=== PATIENT | male | born 1955 | race Caucasian/White ===

== ENCOUNTER 2017-01-04 10:47 | Emergency (ER) | payer MEDICARE ==
[2017-01-04] MEDS ORDERED: Sodium Chloride 0.9% 1000 ML 1,000 ML ONE ×3 (10:54→13:33)
[2017-01-04] MEDS ORDERED: Pepcid 20 MG VIAL IV ONE ×2 (10:54→10:55)
[2017-01-04] MEDS ORDERED: Zofran 4 MG/2 ML VIAL ONE (10:54)
[2017-01-04] MEDS ORDERED: Zofran 4 MG/2 ML VIAL IV ONE (10:55)
[2017-01-04] MEDS ORDERED: Sodium Chloride 0.9% 1000 ML 1,000 ML IV SCH (11:00)
[2017-01-04] MEDS ORDERED: SUBLIMAZE 100 MCG/2 ML IV ONE ×2 (11:02→13:50)
--- NOTE | 2017-01-04 11:02 | ERPHSYRPT ---
- History of Present Illness Time Seen by Provider: 01/04/17 10:55 Source: patient, family () Patient Subjective Stated Complaint: pt here for pain to abd upper, with nausea and vomiting,since about 0630 today, no fever, cough, no loose stools Triage Nursing Assessment: pt alert, resp easy,vomited x 2 in er, abd soft,pt pale,clammy. no edema noted Physician History: CC: chest/abd pain Hx: 61 y/o patient of Dr Tyler with hx of chronic back problems. He has no hx of prior abd surgeries nor heart problems. He awoke this AM with pain in the lower chest and epigastric area. He has vomiting. No back pain. Pain is sharp and severe. Sister brought him to ER. He took ASA last night and 325mg ASA this AM at home [employer]. He takes naproxen and xanax as only medications. Timing/Duration: today Severity: severe Associated Symptoms: nausea, vomiting Allergies/Adverse Reactions: No Known Drug Allergies Allergy (Unverified 01/04/17 11:00) Home Medications: Alprazolam 1 mg [Xanax 1 mg] 1 mg TID 01/04/17 [History] Aspirin EC 325 mg [Ecotrin 325 MG] 325 mg DAILY 01/04/17 [History] Naproxen 500 mg [Naprosyn 500 MG] 500 mg BID 01/04/17 [History] Hx Influenza Vaccination/Date Given: Yes Hx Pneumococcal Vaccination/Date Given: Yes Immunizations Up to Date: Yes - Review of Systems Constitutional: No Fever, No Chills Eyes: No Symptoms Ears, Nose, & Throat: No Symptoms Respiratory: No Cough, No Dyspnea Cardiac: Chest Pain Abdominal/Gastrointestinal: Abdominal Pain, Nausea, Vomiting, No Diarrhea Genitourinary Symptoms: No Dysuria Musculoskeletal: Back Pain (chronic) Skin: No Rash Neurological: No Focal Weakness, No Headache, No Parasthesia All Other Systems: Reviewed and Negative - Past Medical History Pertinent Past Medical History: Yes (chronic back pain) - Social History Smoking Status: Current every day smoker Exposure to second hand smoke: Yes Patient Lives Alone: No - Nursing Vital Signs Nursing Vital Signs: Initial Vital Signs Temperature 97.0 F 01/04/17 10:49 Pulse Rate 51 L 01/04/17 10:49 Respiratory Rate 20 01/04/17 10:49 Blood Pressure 106/59 01/04/17 10:49 O2 Sat by Pulse Oximetry 100 01/04/17 10:49 Pain Scale Pain Intensity 4 - Physical Exam General Appearance: alert, other (pale, uncomfortable appearing, vomiting) Eye Exam: PERRL/EOMI Ears, Nose, Throat Exam: normal ENT inspection, moist mucous membranes Neck Exam: normal inspection, non-tender, supple Respiratory Exam: normal breath sounds Cardiovascular Exam: regular rate/rhythm, bradycardia, No murmur, No friction rub, No gallop Gastrointestinal/Abdomen Exam: soft, No tenderness (no point tenderness, no mass ), No mass, No guarding Male Genitalia Exam: normal genitalia, No hernia Extremity Exam: normal inspection, normal range of motion, No calf tenderness, No pedal edema Neurologic Exam: alert, oriented x 3, cooperative, sensation nml, No motor deficits Skin Exam: warm, dry, pale SpO2 Interpretation: normal SpO2: 100 Oxygen Delivery: Room Air - Course Nursing assessment & vital signs reviewed: Yes EKG Interpreted by Me: RATE (56), Sinus Lenard, NORMAL AXIS, NORMAL INTERVALS ( QTc 398), NORMAL QRS, Non-specific ST Changes (hint of 1mm or less ST elevation inferior leads without reciprocal chyange) - Radiology Exams cxr X-ray Interpretation: Teleradiologist Report, Negative - CT Exams abd/pelvis CT Interpretation: Tele-radiologist Report (pancreatitis) Ordered Tests: Active Orders 24 hr Category Date Time Status Technician Chemical Cleaning STAT Care 01/04/17 10:56 Active EKG-ER Only STAT Care 01/04/17 10:55 Active EKG-ER Only STAT Care 01/04/17 10:56 Active IV Insertion STAT Care 01/04/17 10:55 Active IV Insertion-2nd Peripheral STAT Care 01/04/17 10:56 Active NPO (ED) STAT Care 01/04/17 10:55 Active Pulse Oximetry (ED) STAT Care 01/04/17 10:56 Active ABDOMEN AND PELVIS W/0 CONTRAS [CT] Stat Exams 01/04/17 11:47 Completed CHEST 1 VIEW (PORTABLE) Stat Exams 01/04/17 10:55 Completed CBC W DIFF Stat Lab 01/04/17 11:05 Completed CMP Stat Lab 01/04/17 11:05 Completed CULTURE,URINE Stat Lab 01/04/17 11:40 Received LIPASE Stat Lab 01/04/17 11:05 Completed Lactic Acid Stat Lab 01/04/17 10:55 Completed PROTIME WITH INR Stat Lab 01/04/17 11:05 Completed PTT Stat Lab 01/04/17 11:05 Completed TROPONIN Q3H Lab 01/04/17 10:55 Completed TROPONIN Q3H Lab 01/04/17 14:00 Ordered TROPONIN Q3H Lab 01/04/17 17:00 Ordered TROPONIN Q3H Lab 01/04/17 20:00 Ordered TROPONIN Q3H Lab 01/04/17 23:00 Ordered UA W/ MICROSCOPIC Stat Lab 01/04/17 11:40 Completed Medication Summary Generic Name Dose Route Start Last Admin Trade Name Freq PRN Reason Stop Dose Admin Sodium Chloride 1,000 mls @ 100 mls/hr 01/04/17 11:00 01/04/17 11:03 Sodium Chloride 0.9% 1000 Ml IV 02/03/17 10:59 100 mls/hr .Q10H AZAM Administration Sodium Chloride 1,000 mls @ 999 mls/hr 01/04/17 13:32 Sodium Chloride 0.9% 1000 Ml IV 01/04/17 14:32 .Q1H1M STA Discontinued Medications Generic Name Dose Route Start Last Admin Trade Name Freq PRN Reason Stop Dose Admin Famotidine 20 mg 01/04/17 10:55 01/04/17 11:03 Pepcid 20 Mg Vial IV 01/04/17 10:56 20 mg STAT ONE Administration Famotidine Confirm 01/04/17 10:54 Pepcid 20 Mg Vial Administered 01/04/17 10:55 Dose 20 mg IV .STK-MED ONE Fentanyl Citrate 50 mcg 01/04/17 11:02 01/04/17 11:07 Sublimaze 100 Mcg/2 Ml IV 01/04/17 11:03 50 mcg STAT ONE Administration Fentanyl Citrate Confirm 01/04/17 11:05 Sublimaze 100 Mcg/2 Ml Administered 01/04/17 11:06 Dose 100 mcg .ROUTE .STK-MED ONE Sodium Chloride 1,000 mls @ 999 mls/hr 01/04/17 12:10 01/04/17 12:31 Sodium Chloride 0.9% 1000 Ml IV 01/04/17 13:10 999 mls/hr .Q1H1M STA Administration Ondansetron HCl 4 mg 01/04/17 10:55 01/04/17 11:03 Zofran 4 Mg/2 Ml Vial IV 01/04/17 10:56 4 mg STAT ONE Administration Ondansetron HCl Confirm 01/04/17 10:54 Zofran 4 Mg/2 Ml Vial Administered 01/04/17 10:55 Dose 4 mg .ROUTE .STK-MED ONE Lab/Rad Data: Laboratory Result Diagrams 01/04/17 11:05 01/04/17 11:05 Laboratory Results 01/04/17 01/04/17 01/04/17 Range/Units 11:40 11:05 11:05 WBC (4.0-10.5) K/mm3 RBC (4.1-5.6) M/mm3 Hgb (12.5-18.0) gm/dl Hct (42-50) % MCV (78-100) fl MCH (26-32) pg MCHC (32-36) g/dl RDW (11.5-14.0) % Plt Count (150-450) K/mm3 MPV (6-9.5) fl Gran % (36.0-66.0) % Lymphocytes % (24.0-44.0) % Monocytes % (0.0-12.0) % Eosinophils % (0.00-5.0) % Basophils % (0.0-0.4) % Basophils # (0-0.4) INR 1.13 (0.8-3.0) APTT 26.9 (24.1-36.1) SECONDS Sodium 137 (136-145) mEq/L Potassium 4.0 (3.5-5.1) mEq/L Chloride 103 (98-107) mEq/L Carbon Dioxide 20.5 L (21-32) mEq/L Anion Gap 17.3 H (5-15) MEQ/L BUN 25 H (9-20) mg/dL Creatinine 0.73 (0.55-1.30) mg/dl Estimated GFR > 60 ML/MIN Glucose 117 H (70-110) MG/DL Lactic Acid (0.4-2.0) Calcium 9.0 (8.5-10.1) mg/dL Total Bilirubin 0.40 (0.2-1.0) mg/dL AST 16 (15-37) U/L ALT 15 (12-78) U/L Alkaline Phosphatase 51 (46-116) U/L Troponin I (0.000-0.056) ng/ml Serum Total Protein 6.6 (6.4-8.2) gm/dL Albumin 3.8 (3.4-5.0) g/dL Lipase 06875 H (73-393) U/L Ur Collection Type VOID Urine Color DARK YELLOW (YELLOW) Urine Appearance HAZY (CLEAR) Urine pH 5.0 (5-6) Ur Specific [place] 1.030 (1.005-1.025) Urine Protein TRACE (Negative) Urine Ketones MODERATE (NEGATIVE) Urine Blood 5-10 (0-5) Avelino/ul Urine Nitrite NEGATIVE (NEGATIVE) Urine Bilirubin SMALL (NEGATIVE) Urine Urobilinogen 4 (0-1) mg/dL Ur Leukocyte Esterase NEGATIVE (NEGATIVE) Urine Microscopic RBC 2-5 (0-2) /HPF Urine Microscopic WBC 0-2 (0-5) /HPF Ur Epithelial Cells RARE (FEW) /HPF Urine Bacteria RARE (NEGATIVE) /HPF Hyaline Casts 2-5 (0-2) /LPF Urine Mucus MANY (NEGATIVE) /HPF Urine Culture Reflexed YES (NO) Urine Glucose NEGATIVE (NEGATIVE) mg/dL Specimen Received 01/04/17 1047 01/04/17 01/04/17 01/04/17 Range/Units 11:05 10:55 10:55 WBC 9.9 (4.0-10.5) K/mm3 RBC 4.40 (4.1-5.6) M/mm3 Hgb 13.7 (12.5-18.0) gm/dl Hct 40.6 L (42-50) % MCV 92.3 (78-100) fl MCH 31.1 (26-32) pg MCHC 33.7 (32-36) g/dl RDW 13.2 (11.5-14.0) % Plt Count 241 (150-450) K/mm3 MPV 9.3 (6-9.5) fl Gran % 86.2 H (36.0-66.0) % Lymphocytes % 9.4 L (24.0-44.0) % Monocytes % 4.1 (0.0-12.0) % Eosinophils % 0.2 (0.00-5.0) % Basophils % 0.1 (0.0-0.4) % Basophils # 0.01 (0-0.4) INR (0.8-3.0) APTT (24.1-36.1) SECONDS Sodium (136-145) mEq/L Potassium (3.5-5.1) mEq/L Chloride (98-107) mEq/L Carbon Dioxide (21-32) mEq/L Anion Gap (5-15) MEQ/L BUN (9-20) mg/dL Creatinine (0.55-1.30) mg/dl Estimated GFR ML/MIN Glucose (70-110) MG/DL Lactic Acid 1.3 (0.4-2.0) Calcium (8.5-10.1) mg/dL Total Bilirubin (0.2-1.0) mg/dL AST (15-37) U/L ALT (12-78) U/L Alkaline Phosphatase (46-116) U/L Troponin I < 0.017 (0.000-0.056) ng/ml Serum Total Protein (6.4-8.2) gm/dL Albumin (3.4-5.0) g/dL Lipase (73-393) U/L Ur Collection Type Urine Color (YELLOW) Urine Appearance (CLEAR) Urine pH (5-6) Ur Specific [place] (1.005-1.025) Urine Protein (Negative) Urine Ketones (NEGATIVE) Urine Blood (0-5) Avelino/ul Urine Nitrite (NEGATIVE) Urine Bilirubin (NEGATIVE) Urine Urobilinogen (0-1) mg/dL Ur Leukocyte Esterase (NEGATIVE) Urine Microscopic RBC (0-2) /HPF Urine Microscopic WBC (0-5) /HPF Ur Epithelial Cells (FEW) /HPF Urine Bacteria (NEGATIVE) /HPF Hyaline Casts (0-2) /LPF Urine Mucus (NEGATIVE) /HPF Urine Culture Reflexed (NO) Urine Glucose (NEGATIVE) mg/dL Specimen Received - Progress Progress Note: 01/04/17 11:33 No abdominal tenderness. He still has some pain. Meds given. REpeat EKG similar. Spoke to Dr Jannie Albert and will send EKG for his review. EKG nonspecific but suspect inferior ischemia due to symptoms. 01/04/17 12:15 BP was 70/ IVF bolus in progress. He has some bradycardia as well. Dr Jannie Albert reviewed EKG X 2 and advised not STEMI but could t rail turner to be ACS. He arranged ICU bed at [facility]. In meantime the troponin is inially negative and lipase is elevated. Will notify Dr Albert after CT result. 01/04/17 13:32 BP improving but still low. Spoke to Dr Davenport hospitalist at [facility] who accepts transfer to [facility] ICU. Counseled pt/family regarding: lab results, diagnosis, need for follow-up, rad results - Departure Time of Disposition: 13:33 Departure Disposition: Transfer ([facility]) Clinical Impression: Acute pancreatitis, rule out ACS, Hypotension Condition: Serious Critical Care Time: Yes Critical Care Time(excluding separately billable procedures): 30-74 minutes Referrals: KAREN TYLER [Primary Care Provider] -
[2017-01-04] MEDS ORDERED: SUBLIMAZE 100 MCG/2 ML ONE ×2 (11:05→13:52)
[2017-01-04 11:18] LABS: BASOPHIL % 0.1 % (0.0-0.4); Eosinophil % 0.2 % (0.00-5.0); Granulocytes % 86.2 % (36.0-66.0); Lymphocytes % 9.4 % (24.0-44.0); Mean Cell Volume 92.3 fl (78-100); Mean Corpuscular Hemoglobin 31.1 pg (26-32); Mean Platelet Volume 9.3 fl (6-9.5); Monocytes % 4.1 % (0.0-12.0); Platelet Count 241 K/mm3 (150-450); Red Cell Distribution Width 13.2 % (11.5-14.0); White Blood Count 9.9 K/mm3 (4.0-10.5)
--- NOTE | 2017-01-04 11:30 | XRAY ---
Indication: Chest pain. Comparison: None Portable apical lordotic chest demonstrates normal heart and lungs. Bony thorax intact.
[2017-01-04 11:33] LABS: INR 1.13 (0.8-3.0); PROTIME 12.6 SECONDS (8.83-12.87)
[2017-01-04 11:36] LABS: PTT 26.9 SECONDS (24.1-36.1)
[2017-01-04 11:42] LABS: ALBUMIN 3.8 g/dL (3.4-5.0); ALKALINE PHOSPHATASE 51 U/L (46-116); ANION GAP 17.3 MEQ/L (5-15); BLOOD UREA NITROGEN 25 mg/dL (9-20); CHLORIDE 103 mEq/L (98-107); Carbon Dioxide 20.5 mEq/L (21-32); Glucose 117 MG/DL (70-110); SGOT/AST 16 U/L (15-37); SGPT/ALT 15 U/L (12-78); SODIUM 137 mEq/L (136-145); Total Protein 6.6 gm/dL (6.4-8.2)
[2017-01-04 11:52] LABS: Collection Type VOID
[2017-01-04 11:53] LABS: Bilirubin SMALL (NEGATIVE); COMPLETE URINE MICROSCOPIC? YES; Glucose NEGATIVE (NEGATIVE); Leukocyte Esterase NEGATIVE (NEGATIVE)
[2017-01-04 12:02] LABS: LIPASE 14170 U/L (73-393)
[2017-01-04 12:07] LABS: ADD URINE CULTURE? YES (NO); Bacteria RARE /HPF (NEGATIVE); Epithelial Cells RARE /HPF (FEW); Mucus MANY /HPF (NEGATIVE); WBC 0-2 /HPF (0-5)
[2017-01-04] MEDS ORDERED: Sodium Chloride 0.9% 1000 ML 1,000 ML IV STA ×2 (12:10→13:32)
--- NOTE | 2017-01-04 12:22 | XRAY ---
Indication: Lower chest/upper abdominal pain. Comparison: None Lung bases essentially clear. Heart is not enlarged. There is mild peripancreatic stranding with tiny free fluid near the tail the pancreas favoring pancreatitis. A few pancreatic punctate calcifications favor chronic pancreatitis. No walled off fluid collection or free air. Noncontrasted stomach and bowel loops appear nonobstructed. Mild diffuse scattered colonic fecal debris. Normal appendix. A few calcified splenic granulomas. Remaining liver, gallbladder, spleen, adrenal glands, kidneys, ureters, and bladder appear unremarkable for noncontrast exam. Mild aortoiliac calcifications without AAA. Osseous structures intact with moderate degenerative changes throughout the spine and moderate levorotoscoliosis centered at L1-L2 level. Impression: 1. CT findings favoring acute pancreatitis on a background of chronic pancreatitis. 2. Mild fecal stasis without obstruction. Comment: Case was reviewed with the ordering clinician, Dr. Sánchez. CT DI 18.85
[2017-01-04 14:36] VITALS: BP 100/56; PULSE 44; O2SAT 97
== END 2017-01-04 14:41 | disposition short-term general hospital (02) ==
LOC: ED 10:47
DX: K85.90 Acute pancreatitis without necrosis or infection, unspecified (principal); I95.9 Hypotension, unspecified; R11.2 Nausea with vomiting, unspecified
CPT/HCPCS: 36000; 36415; 71010; 74176; 80053; 81000; 83605; 83690; 84484; 85025; 85610; 85730; 87086; 93005; 93041; 96360; 96361; 96365; 96367; 96368; 96374; 96375; 99285; J2405; J3010

== ENCOUNTER 2023-01-06 14:56 | Day surgery (SDC) | payer MEDICARE ==
[2023-01-06] MEDS ORDERED: Depo-Medrol 40 MG/ML IM ONE (14:57)
[2023-01-06] MEDS ORDERED: BUPIVACAINE 0.5% VIAL IJ ONE (14:57)
[2023-01-06] MEDS ORDERED: DIPRIVAN 200 MG/20 ML IV ONE (16:36)
[2023-01-06] MEDS ORDERED: Lactated Ringers 1,000 ML IV ONE (17:12)
--- NOTE | 2023-01-06 17:19 | XRAY ---
Indication: Left SI joint and left hip injection. Intraoperative fluoroscopy provided for 21 seconds. 4 digital spot images submitted for interpretation demonstrates posterior needle tip projecting over the left SI joint. Additional needle tip lateral to the left femur neck with small amount of contrast injected for needle tip placement. Correlate with intraoperative findings/report.
--- NOTE | 2023-01-06 17:41 | XRAY ---
21 seconds of fluoroscopy was used in surgery for a left sacroiliac joint and left intra-articular hip injection.
== END 2023-01-06 17:13 | disposition home or self-care (01) ==
LOC: SDC-PAIN 14:56
PROVIDERS: ATTEND Psychiatry & Neurology Pain Medicine
DX: M46.1 Sacroiliitis, not elsewhere classified (principal); M16.12 Unilateral primary osteoarthritis, left hip
CPT/HCPCS: 20610; 27096; 73501; 77002; G0260; J1030; J2704

== ENCOUNTER 2023-04-16 06:08 | Observation (INO) | payer MEDICARE ==
[2023-04-16] MEDS: celeBREX 100 MG PO ONE (06:36)
[2023-04-16] MEDS: Decadron 4 MG PO ONE (06:36)
[2023-04-16] MEDS: NEURONTIN PO ONE (06:36)
[2023-04-16] MEDS: Lactated Ringers 1,000 ML IV SCH (06:37)
[2023-04-16] MEDS: TYLENOL EXTRA STRENGTH 500 MG PO ONE (06:37)
[2023-04-16] MEDS: CEFAZOLIN 2 GM-D5W BAG** 2 GM/50 ML ML IV SCH ×2 (06:37→15:52)
[2023-04-16 07:21] LABS: ABO TYPING A; Antibody Screen NEGATIVE (NEGATIVE); RH TYPING POSITIVE
[2023-04-16] MEDS ORDERED: Zemuron 100 MG/10 ML ONE ×3 (07:33→09:58)
[2023-04-16] MEDS ORDERED: Versed 2 MG/2 ML Injection ONE (07:34)
[2023-04-16] MEDS ORDERED: SUBLIMAZE 100 MCG/2 ML ONE ×3 (07:34→10:29)
[2023-04-16] MEDS ORDERED: Xylocaine-Mpf 2% 5 Ml Vial ONE (07:34)
[2023-04-16] MEDS ORDERED: DIPRIVAN 200 MG/20 ML IV ONE (07:34)
[2023-04-16] MEDS ORDERED: Naropin 0.5% 30 ML VIAL ONE (07:40)
[2023-04-16] MEDS ORDERED: Epinephrine Preservative Free 1 MG/ML ONE (07:40)
[2023-04-16 07:58] LABS: Amphetamine,Urine NEGATIVE (NEGATIVE); Barbiturate,Urine NEGATIVE (NEGATIVE); Benzodiazepine,Urine POSITIVE (NEGATIVE); Cocaine,Urine NEGATIVE (NEGATIVE); Methadone,Urine NEGATIVE (NEGATIVE); Opiate,Urine NEGATIVE (NEGATIVE); PCP,Urine NEGATIVE (NEGATIVE); THC,Urine POSITIVE (NEGATIVE)
[2023-04-16] MEDS ORDERED: Decadron 4 MG INJ ONE (08:14)
[2023-04-16] MEDS ORDERED: Zofran 4 MG/2 ML VIAL ONE (08:14)
[2023-04-16] MEDS ORDERED: ROBINUL ONE (09:28)
[2023-04-16] MEDS ORDERED: PHENYLEPHRINE HCL ONE (09:51)
[2023-04-16] MEDS ORDERED: Lactated Ringers 1,000 ML IV ONE ×2 (09:56→16:49)
[2023-04-16] MEDS ORDERED: Hydromorphone 1 mg/ml Injection ONE (10:24)
[2023-04-16] MEDS ORDERED: TORAdol 30 mg Injection ONE (10:53)
--- NOTE | 2023-04-16 12:10 | OP ---
PROCEDURE DATE/TIME: 04/16/2023 0817 PREOPERATIVE DIAGNOSIS: Left hip degenerative joint disease. POSTOPERATIVE DIAGNOSIS: Left hip degenerative joint disease. PROCEDURE: Left posterior tibial hip replacement ATTENDING PHYSICIAN: Shaan Lewis M.D. ANESTHESIA: General with peripheral block. ASSIST: Second scrub. FINDINGS: Severe degenerative joint disease with superior acetabular wear. IMPLANTS: Jak G7 cup with 8 mm diameter and a 25 mm screw. Dual Mobility liner 46 mm diameter and then a 28 mm Dual Mobility ceramic head -3.5 with 28 x 46 poly stem with a Jak Avenir Complete column stem size 7 standard. INDICATIONS FOR PROCEDURE: The patient is a 68-year-old white male with painful left hip refractory to conservative care. He had site of nerve palsy and hyperextension of his knee and degenerative lumbar spine therefore it was decided that he needed good mobility for greater stability for pain relief from his arthritis. DESCRIPTION OF PROCEDURE: The patient was seen in preoperative holding room. Identified as the left hip as correct and this was initialed by me. He had 2 gm Kefzol and 1000 mg tranexamic acid. He had preoperative block. He was taken to OR where he had general anesthesia. He was positioned in the right lateral decubitus position with a peg board and axillary roll and his arms on two arm boards. Preoperative leg lengths were about 1 cm short on the left. Had sterile prep and drape of the left lower extremity. Time out was performed by me. The posterior curved incision was preinjected with 10 cc of hip capsule injection solution which contained 0.25% ropivacaine with epinephrine. The incision was made and the fascia was split in line with the gluteus grzegorz split bluntly. A Charnley retractor was placed superficially to the sciatic nerve. The short external rotators of the femur from the piriformis down to the quadratus femoris were released along with the capsule. The capsule is then tagged with #2 MaxBraid sutures placing three sutures. The hip was dislocated and femoral neck cut was made at 45-degree angle to the shaft with head internally rotated 90 degrees and 1.5 cm proximal to the lesser trochanter. The head was removed and measured at 54 mm diameter. A Judit retractor is placed posteriorly at the 9:00 and 6:00 positions. The acetabulum labrum was excised sharply. Reaming was then started with a 52 reamer going directly medially the medial wall and changing the direction of 40 degrees abduction, 20 degrees flexion going up in 2 mm increments. Size 54 at 1 mm increments up to size 57. The trial cup fit well in the previously mentioned degree of anteversion. It was irrigated. True cup was impacted with the puncture holes at the posterior-superior aspect of the dome. Two screws were placed, one superior and one posterior-superior. The trial liner was then placed. A saline solution is injected around the capsule having 50 cc of it flowed. The proximal femur is then prepared with a box chisel and canal finder and broaching up to size 7 with good fit. A calcar reamer had gone over this and a trial reduction was done with fairly good stability with the 36 head due to his living alone and only having a bathtub was at risk for dislocation we decided to use a Dual Mobility head. The trial Dual Mobility liner was placed and the Dual Mobility head with a -3.5 neck was tried with good leg length and very good stability. All trial components were then removed. The true size 7 stem was impacted with good tight fit. Acetabular liner was impacted into the cup and then the Dual Mobility ceramic head polyethylene combo was impacted with a press on the back table. The ceramic glided freely within the polyethylene this was then impacted on the trunnion with good tight fit this is introduced with good stability and leg length and adequate range of motion. We irrigated again and then the drill holes were placed in the greater trochanter to repair back the capsule placing three sutures. The piriformis was repaired back with #2 MaxBraid. The fascia was then closed with #2 Vicryl interrupted, subcu with 2-0 Vicryl interrupted and skin with shagufta. Sterile dressings were applied and patient was placed on an abduction pillow. Plan is for the patient to be weightbearing as tolerated with left posterior total hip precautions. He will use a walker. If he does well with therapy today he may go home but if not he may be kept overnight. He will have shagufta removed in two weeks and he may remove the dressing and shower postoperative day five. Aspirin for Deep venous thrombosis prophylaxis.
[2023-04-16] MEDS ORDERED: XANAX 1 MG PO PRN (12:19)
[2023-04-16] MEDS ORDERED: TYLENOL EXTRA STRENGTH 500 MG PO PRN (12:19)
[2023-04-16] MEDS ORDERED: TADALAFIL 5 MG PO SCH (12:30)
[2023-04-16 12:38] VITALS: RESP 16
[2023-04-16] MEDS ORDERED: Oxy-IR 5 MG PO PRN (12:41)
[2023-04-16] MEDS ORDERED: Hydromorphone 1 mg/ml Injection IV PRN (12:41)
[2023-04-16] MEDS ORDERED: MORPHINE SULFATE 2 MG INJ IV PRN (12:41)
[2023-04-16] MEDS ORDERED: Miralax Powder 17GM PACKET PO PRN (12:41)
[2023-04-16] MEDS ORDERED: NORCO 5/325 MG PO PRN (12:41)
[2023-04-16] MEDS ORDERED: PERCOCET TABLET 5/325MG PO PRN (12:41)
[2023-04-16] MEDS ORDERED: ULTRAM 50 MG PO PRN (12:41)
[2023-04-16] MEDS ORDERED: Docusate Sodium 100 MG PO PRN (12:41)
--- NOTE | 2023-04-16 13:26 | PCM.NOTE ---
ORTHO Progress Note - Progress Note ORTHO Progress Note: Subjective: Patient with mild pain. Eating and drinking well. No urge to urinate yet Objective: Alert and orient x 3 sitting up in bedAble to straight leg raise. Dressing good X-ray showsProsthesis with no fractureIn good position Assessment: Doing well with left THR Plan: Discharge home if does well with physical therapy this afternoon. Weight-bear as tolerated with total precautions using a walker Keep dressing on for 5 days then may shower. Should not get into a tub until seen back Return immediately if wound drainage or fever or redness around the incision, Otherwise we will see Anika in 2 weeks for staple removal and see me back in 3 weeks
[2023-04-16] MEDS ORDERED: MELOXICAM PO SCH (14:00)
[2023-04-16] MEDS: Zestril 10 MG PO SCH (15:50)
[2023-04-16 15:56] VITALS: PULSE 72; TEMP 97.1; O2SAT 98
[2023-04-16] MEDS: NORCO 7.5/325 MG TAB PO PRN (16:25)
[2023-04-16] MEDS ORDERED: Epinephrine Preservative Free 1 MG/ML IJ ONE (16:49)
[2023-04-16] MEDS ORDERED: TRANEXAMIC 1,000 MG/100ML-NACL 1,000 MG/100 ML PIGGYBACK IV ONE (16:49)
[2023-04-16] MEDS ORDERED: Marcaine Mpf 0.5% Vial 30 Ml IJ ONE (16:49)
[2023-04-16 17:32] VITALS: BP 116/66
--- NOTE | 2023-04-17 09:28 | XRAY ---
CLINICAL HISTORY: post op THR TECHNIQUE: X-ray left hip AP and lateral views. COMPARISON: None FINDINGS: Hip arthroplasty is seen without hardware complication. Soft tissue swelling at the proximal thigh with air lucencies likely postoperative changes. A radiological examination of hip demonstrates no lytic or sclerotic lesion. There is no evidence of acute fracture or dislocation. The cortical margins of the osseous structures are within normal limits. Hip joint space appears normal with intact articular surfaces. There are no intra-articular or periarticular calcifications. IMPRESSION: Hip arthroplasty, without hardware complications. Soft tissue swelling at the upper thigh is likely postoperative changes. DISCLAIMER:A subtle bone abnormality or fracture may not be readily apparent on x-rays, thus clinical correlation and further imaging including follow up CT, MRI, or follow up x-rays are advised as needed. Electronically Signed by: Willis Clifford MD. (04/17/2023 09:23:45 EST)
[2023-04-17] MEDS ORDERED: NON-FORMULARY ITEM (Meloxicam 15 Mg [Meloxicam 15 Mg] 15 MG Tablet) PO SCH (10:00)
[2023-04-17] MEDS ORDERED: Ecotrin 325 MG PO SCH (10:00)
== END 2023-04-16 16:50 | disposition home health service (06) ==
LOC: EDSTATUS 06:08 → UNDOADMIN 06:10 → MED SURG 06:10 → EDSTATUS 07:37 → MED SURG 11:27
PROVIDERS: ADMIT Orthopaedic Surgery; ATTEND Orthopaedic Surgery
DX: M16.12 Unilateral primary osteoarthritis, left hip (principal); M47.896 Other spondylosis, lumbar region; Z79.899 Other long term (current) drug therapy
CPT/HCPCS: 01214; 27130; 36415; 64450; 73502; 76937; 76942; 80307; 86850; 86900; 86901; 97162; 97165; 97530; C1776; G0378; G0379; J0171; J0690; J1100; J1170; J1885; J2250; J2371; J2405; J2704; J2795; J3010; A9270-GY

== ENCOUNTER 2023-06-24 16:25 | Emergency (ER) | payer MEDICARE ==
[2023-06-24 16:35] VITALS: RESP 18; TEMP 98.3
--- NOTE | 2023-06-24 17:15 | ERPHSYRPT ---
- History of Present Illness Time Seen by Provider: 06/24/23 16:32 Source: patient Exam Limitations: no limitations Patient Subjective Stated Complaint: PT states "I had a hip replacement in march of 2023. I have a bad vertibrae in my neck and it flaires up every once in awhile and I just could not sleep. Triage Nursing Assessment: Pt presented alert and oriented X 3, skin pwd. PT ambulates with a walker and ambulates with a slight unsteady gait. PT stated he is ambulating his normal gait. Pt denied any injury or fall. Physician History: 68-year-old male with history of hypertension, chronic back and neck pain, arthritis presented in the ER with complaint of neck pain for the last 3 to 4 days. Patient reports she has pain left lateral neck muscles seems like has pinched nerve which she gets once or twice a year and usually gets better after taking steroid Dosepak. Denies any numbness tingling or weakness of upper extremities. He has chronic weakness in lower extremities and uses walker for ambulation. Recently patient has a hip replacement and is currently in rehab. Denies any fall or trauma to the neck/head. Allergies/Adverse Reactions: No Known Drug Allergies Allergy (Verified 04/16/23 12:28) Home Medications: Aspirin EC 325 mg [Ecotrin 325 MG] 325 mg PO UD 01/04/17 [History] ALPRAZolam 1 MG [Xanax 1 mg] 1 mg PO TID PRN PRN 04/02/23 [History] Acetaminophen 500 mg [Tylenol Extra Strength 500 mg] 500 mg PO UD PRN 04/02/23 [History] Lisinopril 10 mg [Zestril 10 MG] 10 mg PO DAILY 04/02/23 [History] Meloxicam 15 mg [Meloxicam 15 MG] 15 mg PO TID 04/02/23 [History] tadalafiL [Tadalafil] 5 mg PO UD 04/02/23 [History] Hx Tetanus, Diphtheria Vaccination/Date Given: Yes Hx Influenza Vaccination/Date Given: Yes Hx Pneumococcal Vaccination/Date Given: Yes Immunizations Up to Date: No Travel Risk - International Travel Have you traveled outside of the country in past 3 weeks: No - Emerging Infectious Disease Are you exhibiting symptoms associated with any current EIDs: No - Review of Systems Constitutional: No Symptoms Ears, Nose, & Throat: No Symptoms Respiratory: No Symptoms Cardiac: No Symptoms Abdominal/Gastrointestinal: No Symptoms Musculoskeletal: Arthralgias, Back Pain, Neck Pain Skin: No Symptoms Neurological: No Symptoms Endocrine: No Symptoms Hematologic/Lymphatic: No Symptoms - Past Medical History Pertinent Past Medical History: Yes Neurological History: No Pertinent History ENT History: No Pertinent History Cardiac History: Hypertension Respiratory History: No Pertinent History Endocrine Medical History: No Pertinent History Musculoskeletal History: Osteoarthritis, Other GI Medical History: No Pertinent History History: No Pertinent History Psycho-Social History: No Pertinent History Male Reproductive Disorders: No Pertinent History Other Medical History: PATIENT DENIES ANY NEUROLOGIC PROBLEMS BUT REPORTS NUMBNESS IN LEFT LEG. - Past Surgical History Past Surgical History: Yes Neuro Surgical History: No Pertinent History Cardiac: No Pertinent History Respiratory: No Pertinent History Gastrointestinal: No Pertinent History Genitourinary: No Pertinent History Musculoskeletal: No Pertinent History Male Surgical History: No Pertinent History Other Surgical History: prior knee surgery - Social History Smoking Status: Current every day smoker How long have you smoked: 40 years Exposure to second hand smoke: Yes Drug Use: marijuana Patient Lives Alone: No - Nursing Vital Signs Nursing Vital Signs: Initial Vital Signs Temperature 98.3 F 06/24/23 16:29 Pulse Rate 69 06/24/23 16:29 Respiratory Rate 18 06/24/23 16:29 Blood Pressure 141/84 06/24/23 16:29 O2 Sat by Pulse Oximetry 96 06/24/23 16:29 Pain Scale Pain Intensity 5 - Physical Exam General Appearance: no apparent distress, alert Eye Exam: PERRL/EOMI Ears, Nose, Throat Exam: normal ENT inspection, TMs normal, pharynx normal, moist mucous membranes Neck Exam: normal inspection, supple, other (Tenderness left sternomastoid and trapezius area. 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 Patient has a history of arthritic changes in the vertebrae throughout her back and neck. Has no new focal neurosymptoms. Patient has no definite or midline tenderness. I have offered her CT imaging which she declined. Patient reports "it is the same symptoms I get once or twice a year and I need steroids". He is given a shot of Kenalog and will send short course of steroid to go home. Patient does understand the risk of not obtaining CT which would include but not limited to missing fracture or subluxation, spinal cord injury and permanent paralysis but still does not want to get it done. He is advised to follow-up with his primary care. Discussed signs symptoms of worsening needing return to ER which she seems understanding. Counseled pt/family regarding: diagnosis, need for follow-up Medical Desision Making - Risk of complications The pt has a mod risk of morbidity or mortality based on: Need for prescription drug management - Departure Departure Disposition: Home Clinical Impression: Cervical muscle strain Condition: Stable Critical Care Time: No Referrals: BARBARA SINGH MD [Primary Care Provider] - Follow up with PCP 1 day Instructions: Cervical Muscle Strain (DC) Additional Instructions: Take Tylenol as needed for pain. Follow-up with your primary care for reevalua tion. Return to ER for intractable pain, numbness tingling weakness of extremities/worsening difficulty movements of neck etc. Prescriptions: Lidocaine HCl 5% Patch [Lidoderm Patch 5%] 1 patch TP DAILY 12 Days #12 patch Methylprednisolone Packet [Medrol Dosepack] 4 mg PO UD #1 packet
[2023-06-24 17:44] VITALS: BP 126/76; PULSE 54; O2SAT 98
[2023-06-24] MEDS ORDERED: Kenalog-40 ONE (17:49)
[2023-06-24] MEDS: Kenalog-40 IM ONE (17:50)
== END 2023-06-24 18:07 | disposition home or self-care (01) ==
LOC: ED 16:25
DX: S16.1XXA Strain of muscle, fascia and tendon at neck level, initial encounter (principal); M54.2 Cervicalgia
CPT/HCPCS: 96372; 99283; J3301

== ENCOUNTER 2024-01-05 14:50 | Day surgery (SDC) | payer MEDICARE ==
[2024-01-05] MEDS ORDERED: Decadron 4 MG INJ IV ONE (14:51)
[2024-01-05] MEDS ORDERED: Sodium Chloride 0.9(Preservative Free) 10 ML IJ ONE (14:51)
[2024-01-05] MEDS ORDERED: LIDOCAINE HCL 1% AMPUL 5 ML IJ ONE (14:51)
--- NOTE | 2024-01-05 20:53 | XRAY ---
Indication: Cervical HELDER. Intraoperative fluoroscopy provided for 1 minute 30 second. 2 digital spot image submitted for interpretation demonstrates posterior needle tip projecting posterior to cervical thoracic junction. Small amount of contrast injected for needle tip placement. Correlate with intraoperative findings/report.
--- NOTE | 2024-01-06 09:10 | XRAY ---
One minute and 30 seconds of fluoroscopy was used in surgery for a cervical HELDER.
== END 2024-01-05 18:15 ==
LOC: SDC-PAIN 14:50
PROVIDERS: ATTEND Psychiatry & Neurology Pain Medicine
DX: M54.12 Radiculopathy, cervical region (principal)
CPT/HCPCS: 62321; 72040; 77003; J1100; Q9966

== ENCOUNTER 2024-02-09 13:33 | Day surgery (SDC) | payer MEDICARE ==
[2024-02-09] MEDS ORDERED: Xylocaine-Mpf 2% 5 Ml Vial IJ ONE (13:34)
[2024-02-09] MEDS ORDERED: Depo-Medrol 40 MG/ML IM ONE (13:34)
[2024-02-09] MEDS ORDERED: Reglan 10 MG/2 ML ONE (14:47)
[2024-02-09] MEDS ORDERED: DIPRIVAN 200 MG/20 ML IV ONE (15:58)
--- NOTE | 2024-02-09 16:52 | XRAY ---
Indication: Bilateral L4-S1 MBB. Intraoperative fluoroscopy provided for 15 seconds. Single digital spot image submitted for interpretation demonstrates posterior needle tips projecting over the expected left and right L4-S1 nerve roots. Correlate with intraoperative findings/report.
--- NOTE | 2024-02-09 17:05 | XRAY ---
15 seconds of fluoroscopy was used in surgery for a bilateral L4-S1 MBB.
== END 2024-02-09 16:24 | disposition home or self-care (01) ==
LOC: SDC-PAIN 13:33
PROVIDERS: ATTEND Psychiatry & Neurology Pain Medicine
DX: M47.816 Spondylosis without myelopathy or radiculopathy, lumbar region (principal)
CPT/HCPCS: 72020; 77002; J2704

== ENCOUNTER 2024-03-16 13:10 | Day surgery (SDC) | payer MEDICARE ==
[2024-03-16] MEDS ORDERED: BUPIVACAINE 0.5% VIAL IJ ONE (13:11)
[2024-03-16] MEDS ORDERED: Depo-Medrol 40 MG/ML IM ONE (13:11)
[2024-03-16] MEDS ORDERED: propofoL IV ONE (14:42)
--- NOTE | 2024-03-16 16:30 | XRAY ---
Indication: Bilateral L4-S1 MBB. Intraoperative fluoroscopy provided for 8 seconds. Single digital spot image submitted for interpretation demonstrates posterior needle tips projecting over expected left and right L4-S1 nerve roots. Correlate with intraoperative findings/report.
--- NOTE | 2024-03-17 09:23 | XRAY ---
8 seconds of fluoroscopy was used in surgery for a bilateral L4-S1 MBB.
== END 2024-03-16 15:17 | disposition home or self-care (01) ==
LOC: SDC-PAIN 13:10
PROVIDERS: ATTEND Psychiatry & Neurology Pain Medicine
DX: M47.816 Spondylosis without myelopathy or radiculopathy, lumbar region (principal)
CPT/HCPCS: 64493; 64494; 72020; 77002; J2704

== ENCOUNTER 2024-04-12 13:13 | Day surgery (SDC) | payer MEDICARE ==
[2024-04-12] MEDS ORDERED: methylPREDNISolone acetate IM ONE (13:14)
[2024-04-12] MEDS ORDERED: BUPIVACAINE 0.5% VIAL IJ ONE (13:14)
[2024-04-12] MEDS ORDERED: LIDOCAINE HCL 1% AMPUL 5 ML IJ ONE (13:14)
[2024-04-12] MEDS ORDERED: Lactated Ringers 500 ML IV ONE (13:25)
[2024-04-12] MEDS ORDERED: propofoL IV ONE (14:51)
--- NOTE | 2024-04-12 16:32 | XRAY ---
Indication: Left L4-S1 RFA. Intraoperative fluoroscopy provided for 20 seconds. 6 digital spot image submitted for interpretation demonstrates posterior needle tips projecting over expected left L4-S1 nerve roots. Correlate with intraoperative findings/report.
--- NOTE | 2024-04-12 17:08 | XRAY ---
20 seconds of fluoroscopy was used in surgery for a left L4-S1 RFA.
== END 2024-04-12 15:30 ==
LOC: SDC-PAIN 13:13
PROVIDERS: ATTEND Psychiatry & Neurology Pain Medicine
DX: M47.817 Spondylosis without myelopathy or radiculopathy, lumbosacral region (principal)
CPT/HCPCS: 64635; 64636; 72100; 77002; J1010; J2704

== ENCOUNTER 2024-04-19 13:45 | Day surgery (SDC) | payer MEDICARE ==
[2024-04-19] MEDS ORDERED: methylPREDNISolone acetate IM ONE (13:46)
[2024-04-19] MEDS ORDERED: LIDOCAINE HCL 1% 50 MG/5 ML VL IJ ONE (13:46)
[2024-04-19] MEDS ORDERED: BUPIVACAINE 0.5% VIAL IJ ONE (13:46)
[2024-04-19] MEDS ORDERED: Lactated Ringers 500 ML IV ONE (13:49)
[2024-04-19] MEDS ORDERED: propofoL IV ONE (15:08)
--- NOTE | 2024-04-19 16:34 | XRAY ---
Indication: Right L4-S1 RFA. Intraoperative fluoroscopy provided for 17 seconds. 4 digital spot images submitted for interpretation demonstrates posterior needle tips projecting over expected right L4-S1 nerve roots. Correlate with intraoperative findings/report.
--- NOTE | 2024-04-19 16:38 | XRAY ---
17 seconds of fluoroscopy were used in surgery for a right L4-S1 RFA.
== END 2024-04-19 15:39 | disposition home or self-care (01) ==
LOC: SDC-PAIN 13:45
PROVIDERS: ATTEND Psychiatry & Neurology Pain Medicine
DX: M47.816 Spondylosis without myelopathy or radiculopathy, lumbar region (principal)
CPT/HCPCS: 64635; 64636; 72100; 77002; J1010; J2704